=== PATIENT | male | born 1980 | race Caucasian/White ===

== ENCOUNTER → 2025-03-04 | Outpatient (CLI) | payer OTHER ==
[~2025-03-04] MED LIST: CEPH500 PO; CLIN150 PO; CRUTCH3 USE; CRUTCH4 USE; CYCL10 PO; DIPH50 PO; Doxycycline Mo100 M1 PO; FAMO20 PO; HYDACE5 PO; IBUP800 PO; META800 PO; NAPR550 PO; OXYACE5T PO; RXCEPH500 PO; RXPROM25S PR; SILSUL1TC TOP
[2025-03-08 18:05] LABS: APTIMA MEDIA TYPE Urine; C. TRACHOMATIS BY TMA Negative (Negative); N. GONORRHOEAE BY TMA Negative (Negative); SPECIMEN SOURCE Urine; T. VAGINALIS BY TMA Negative (Negative)
== END ==
LOC: LAB 14:00 → LAB SHORT 14:00
PROVIDERS: Nurse Practitioner Family
DX: R30.9 Painful micturition, unspecified (principal)
CPT/HCPCS: 87077; 87086; 87186; 87491; 87591; 87661